=== PATIENT | male | born 1990 | race Caucasian/White ===

== ENCOUNTER 2017-01-21 10:18 | Emergency (ER) | payer OTHER ==
[~2017-01-21] VITALS: Ht 185.4 cm; Wt 122.7 kg
[~2017-01-21 10:18] MED LIST: ACET65TA OR; CLIN300C OR; DOXY100T OR; KEFL500C OR; NAPR500T OR; [UNRECOGNIZED DRUG - OTHER] PO
[2017-01-21] MEDS ORDERED: NS 1,000 ML IV SCH (10:33)
[2017-01-21] MEDS ORDERED: ONDANSETRON 4MG/2ML VIAL (J2405) IV ONE (10:45)
[2017-01-21] MEDS ORDERED: KETOROLAC 30 MG/ML VIAL (J1885) IV ONE (10:45)
[2017-01-21 11:00] LABS: INR 1.03
[2017-01-21 11:09] LABS: BASO % 0.2 % (0.0-1.0); EOS # 0.1 K/mm3 (0.0-0.50); EOS % 0.9 % (0.0-3.0); LARGE UNSTAINED CELL # 0.4 K/mm3 (0.0-0.4); LARGE UNSTAINED CELL % 2.6 % (0.0-4.0); LYMPH # 1.9 K/mm3 (1.5-6.5); LYMPH % 10.8 % (24.0-44.0); MEAN CORPUSCULAR HEMOGLOBIN 33.9 pg (27.0-33.0); MEAN CORPUSCULAR HGB CONC 34.5 g/dl (32.0-36.5); MEAN CORPUSCULAR VOLUME 98.1 fl (80.0-96.0); MONO # 1.1 K/mm3 (0.0-0.8); MONO % 7.6 % (0.0-5.0); NEUTROPHILS # 10.8 K/mm3 (1.8-7.7); NEUTROPHILS % 77.9 % (36.0-66.0); PLATELET COUNT, AUTOMATED 219 k/mm3 (150-450); RED CELL DISTRIBUTION WIDTH 12.9 % (11.5-14.5); WHITE BLOOD COUNT 13.8 K/mm3 (4.0-10.0)
[2017-01-21 11:19] LABS: ALBUMIN 4.5 GM/DL (3.2-5.2); ALBUMIN/GLOBULIN RATIO 1.36 (1.00-1.93); ALKALINE PHOSPHATASE 95 U/L (45-117); ALT/SGPT 41 U/L (12-78); ANION GAP 7 MEQ/L (8-16); AST/SGOT 24 U/L (15-37); BILIRUBIN,DIRECT 0.2 MG/DL (0.0-0.2); BLOOD UREA NITROGEN 9 MG/DL (7-18); CALCIUM LEVEL 9.2 MG/DL (8.5-10.1); CARBON DIOXIDE LEVEL 24 MEQ/L (21-32); CHLORIDE LEVEL 109 MEQ/L (98-107); CREATININE FOR GFR 0.95 MG/DL (0.70-1.30); GLOMERULAR FILTRATION RATE > 60.0 (>60); GLUCOSE, FASTING 103 MG/DL (70-105); POTASSIUM SERUM 3.8 MEQ/L (3.5-5.1); SODIUM LEVEL 140 MEQ/L (136-145); TOTAL PROTEIN 7.8 GM/DL (6.4-8.2)
[2017-01-21] MEDS ORDERED: MORPHINE 4 MG/ML 1ML SYRINGE IV ONE (11:30)
--- NOTE | 2017-01-21 11:59 | REP ---
Clinical: Right flank pain. Findings: Lung bases are clear. Visualized heart and pericardium normal. Liver, spleen, pancreas, bilateral adrenal glands and kidneys are normal. Layering sludge and subtle stones in the gallbladder cannot be excluded without CT evidence for acute cholecystitis. The kidneys are without perinephric stranding, hydroureteronephrosis, intrarenal or obstructing ureteral calculi. The enteric system is without obstruction or acute inflammatory process and a normal terminal ileum and appendix are identified in the right lower quadrant. Pelvis demonstrates collapsed normal bladder and age appropriate prostate/seminal vesicles. No free air. No free fluid. No adenopathy. Abdominal aorta without aneurysm. Musculoskeletal structures are intact. Impression: No acute abdominopelvic pathology appreciated. Possible cholelithiasis. Normal appearance to the urinary tract system. Signed by Bernard Lacy MD 01/21/2017 11:51 A
[2017-01-21] MEDS ORDERED: ZOFR4TAB3 PO (12:20)
[2017-01-21] MEDS ORDERED: NORCOTAB PO (12:20)
[2017-01-21 12:28] VITALS: BP 146/74
== END 2017-01-21 12:30 | disposition home or self-care (01) ==
LOC: M ED 10:18
DX: N20.1 Calculus of ureter (principal); E86.0 Dehydration

== ENCOUNTER 2019-02-09 08:18 | Emergency (ER) | payer OTHER ==
[~2019-02-09] VITALS: Ht 185.4 cm; Wt 115.9 kg
[~2019-02-09 08:18] MED LIST changes: +HYDR-3715 PO; +ZOFR4TAB14 PO
[2019-02-09] MEDS ORDERED: ACETAMINOPHEN 500 MG TAB PO ONE (09:45)
[2019-02-09] MEDS ORDERED: KETOROLAC 60 MG/2 ML VIAL (J1885) IM ONE (09:45)
--- NOTE | 2019-02-09 10:13 | REP ---
RIGHT WRIST, FOUR VIEW: There is no evidence of an acute fracture, dislocation or intrinsic bone disease. IMPRESSION: No fracture or dislocation. Electronically Signed by Zachary Mugruia MD 02/09/2019 05:06 P
[2019-02-09] MEDS ORDERED: IBUP80TA PO (11:11)
[2019-02-09] MEDS ORDERED: GABA-845 PO (11:11)
[2019-02-09 11:12] VITALS: BP 123/79
== END 2019-02-09 11:18 | disposition home or self-care (01) ==
LOC: M ED 08:18
DX: M65.88 Other synovitis and tenosynovitis, other site (principal); Z98.890 Other specified postprocedural states; M54.9 Dorsalgia, unspecified; G43.909 Migraine, unspecified, not intractable, without status migrainosus; K58.9 Irritable bowel syndrome, unspecified; R91.1 Solitary pulmonary nodule; F17.210 Nicotine dependence, cigarettes, uncomplicated; Z88.2 Allergy status to sulfonamides
CPT/HCPCS: 73110; 96372; 99283; J1885

== ENCOUNTER 2020-03-05 13:00 | Emergency (ER) | payer OTHER ==
[~2020-03-05 13:00] MED LIST changes: +GABA-845 PO; +IBUP80TA PO
[2020-03-05] MEDS ORDERED: FAMOTIDINE/NS 20 MG/50 ML BAG (S0028) ONE (13:08)
[2020-03-05] MEDS ORDERED: methylPREDNISolone 125MG 2ML VIAL ONE (13:08)
== END 2020-03-05 14:30 | disposition home or self-care (01) ==
LOC: M ED 13:00
DX: T63.441A Toxic effect of venom of bees, accidental (unintentional), initial encounter (principal); Y92.9 Unspecified place or not applicable; Y93.9 Activity, unspecified; Y99.9 Unspecified external cause status; F17.200 Nicotine dependence, unspecified, uncomplicated; Z88.2 Allergy status to sulfonamides
CPT/HCPCS: 96361; 96374; 96375; 99284; J2930

== ENCOUNTER 2020-08-02 09:50 | Emergency (ER) | payer OTHER ==
[~2020-08-02] VITALS: Ht 182.9 cm; Wt 115.7 kg
--- OUTSIDE RECORDS SUMMARY | 2020-08-02 09:56 | CCD ---
Author Author [facility] Organization [facility] Address Unknown Phone Unavailable Care Team Providers Care Threshing Operator Name Role Phone Toribio Ballard MD Unavailable Unavailable Toribio Ballard MD Unavailable Unavailable Toribio Ballard MD Unavailable Unavailable Toribio Ballard MD Unavailable Unavailable Toribio Ballard MD Unavailable Unavailable Toribio Ballard MD Unavailable Unavailable Toribio Ballard MD Unavailable Unavailable Toribio Ballard MD Unavailable Unavailable Toribio Ballard MD Unavailable Unavailable Toribio Ballard MD Unavailable Unavailable Toribio Ballard MD Unavailable Unavailable Toribio Ballard MD Unavailable Unavailable Toribio Ballard MD Unavailable Unavailable Toribio Ballard MD Unavailable Unavailable Toribio Ballard MD Unavailable Unavailable Toribio Ballard MD Unavailable Unavailable Toribio Ballard MD Unavailable Unavailable Toribio Ballard MD Unavailable Unavailable Toribio Ballard MD Unavailable Unavailable Toribio Ballard MD Unavailable Unavailable Toribio Ballard MD Unavailable Unavailable Toribio Ballard MD Unavailable Unavailable Toribio Ballard MD Unavailable Unavailable Toribio Ballard MD Unavailable Unavailable Toribio Ballard MD Unavailable Unavailable Toribio Ballard MD Unavailable Unavailable Toribio Ballard MD Unavailable Unavailable Toribio Ballard MD Unavailable Unavailable Toribio Ballard MD Unavailable Unavailable Toribio Ballard MD Unavailable Unavailable Toribio Ballard MD Unavailable Unavailable Toribio Ballard MD Unavailable Unavailable Toribio Ballard MD Unavailable Unavailable Toribio Ballard MD Unavailable Unavailable Toribio Balladr MD Unavailable Unavailable Toribio Ballard MD Unavailable Unavailable Toribio Ballard MD Unavailable Unavailable Toribio Ballard MD Unavailable Unavailable Toribio Ballard MD Unavailable Unavailable Toribio Ballard MD Unavailable Unavailable Toribio Ballard MD Unavailable Unavailable Toribio Ballard MD Unavailable Unavailable Toribio Ballard MD Unavailable Unavailable Toribio Ballard MD Unavailable Unavailable Toribio Ballard MD Unavailable Unavailable Toribio Ballard MD Unavailable Unavailable Toribio Ballard MD Unavailable Unavailable Toribio Ballard MD Unavailable Unavailable Toribio Ballard MD Unavailable Unavailable Toribio Ballard MD Unavailable Unavailable Toribio Ballard MD Unavailable Unavailable Toribio Ballard MD Unavailable Unavailable Toribio Ballard MD Unavailable Unavailable Toribio Ballard MD Unavailable Unavailable Toribio Ballard MD Unavailable Unavailable Toribio Ballard MD Unavailable Unavailable Toribio Ballard MD Unavailable Unavailable Toribio Ballard MD Unavailable Unavailable Toribio Ballard MD Unavailable Unavailable Toribio Ballard MD Unavailable Unavailable Toribio Ballard MD Unavailable Unavailable Toribio Ballard MD Unavailable Unavailable Toribio Ballard MD Unavailable Unavailable Toribio Ballard MD Unavailable Unavailable Toribio Ballard MD Unavailable Unavailable Toribio Ballard MD Unavailable Unavailable Toribio Ballard MD Unavailable Unavailable Toribio Ballard MD Unavailable Unavailable Toribio Ballard MD Unavailable Unavailable Toribio Ballard MD Unavailable Unavailable Toriibo Ballard MD Unavailable Unavailable Toribio Ballard MD Unavailable Unavailable Toribio Ballard MD Unavailable Unavailable Toribio Ballard MD Unavailable Unavailable Toribio Ballard MD Unavailable Unavailable Toribio Ballard MD Unavailable Unavailable Toribio Ballard MD Unavailable Unavailable Toribio Ballard MD Unavailable Unavailable Toribio Ballrad MD Unavailable Unavailable Toribio Ballard MD Unavailable Unavailable Toribio Ballard MD Unavailable Unavailable Toribio Ballard MD Unavailable Unavailable Toribio Ballard MD Unavailable Unavailable Toribio Ballard MD Unavailable Unavailable Toribio Ballard MD Unavailable Unavailable Toribio Ballard MD Unavailable Unavailable Toribio Ballard MD Unavailable Unavailable Toribio Ballard MD Unavailable Unavailable Toribio Ballard MD Unavailable Unavailable Re-disclosure Warning The records that you are about to access may contain information from federally-assisted alcohol or drug abuse programs. If such information is present, then the following federally mandated warning applies: This information has been disclosed to you from records protected by federal confidentiality rules (42 CFR part 2). The federal rules prohibit you from making any further disclosure of this information unless further disclosure is expressly permitted by the written consent of the person to whom it pertains or as otherwise permitted by 42 CFR part 2. A general authorization for the release of medical or other information is NOT sufficient for this purpose. The Federal rules restrict any use of the information to criminally investigate or prosecute any alcohol or drug abuse patient.The records that you are about to access may contain highly sensitive health information, the redisclosure of which is protected by Article 27-F of the [facility] Public Health law. If you continue you may have access to information: Regarding HIV / AIDS; Provided by facilities licensed or operated by the [facility] Office of Mental Health; or Provided by the [facility] Office for People With Developmental Disabilities. If such information is present, then the following [facility] mandated warning applies: This information has been disclosed to you from confidential records which are protected by state law. State law prohibits you from making any further disclosure of this information without the specific written consent of the person to whom it pertains, or as otherwise permitted by law. Any unauthorized further disclosure in violation of state law may result in a fine or prison sentence or both. A general authorization for the release of medical or other information is NOT sufficient authorization for further disc losure. Allergies and Adverse Reactions Type Description Substance Reaction Status Data Source(s ) Allergy to substance Allergy to substance Allergy to substance [facility] ([facility]) Family History Family Member Name Family Member Gender Family Member Status Date o f Status Description Data Source(s) Unknown Unknown Problem [facility] ([facility] Encounters Encounter Providers Location Date Indications Data Source(s ) Ilia Ballard MD: [address] [place] [phone], Ph. Attender: Ilia Ballard MD [facility] Medical 05/25/2020 12:00:00 AM EST [facility] Insurance Providers Payer name Policy type / Coverage type Policy ID Covered libertarian ID Covered libertarian's relationship to luna Policy Luna Plan Information PENDING SALE TO [facility] [id number] [facility] O [id number] S [id number] SELF PAY UNAVAILABLE SP UNAVAILA BLE SELF PAY O S [facility] Commercial Self [place] UNAVAILABLE S UNAVAILABLE [facility] PHYSIC[facility]ANS [facility] [id number] SP [id number] Workers Compensation Workers Compensation Self [place] P[place] 302/307 [id number] [place] [place] P[place] 302/307 [id number] [facility] [id number]
--- OUTSIDE RECORDS SUMMARY | 2020-08-02 09:56 | CCD ---
Author Organization Unknown Address [address] [place] [address] Phone [phone] Care Team Providers Care Associate Professor Of Literature Name Role Phone Albertina Krishna Unavailable Unavailable Allergies None recorded. Medications Name Status Start Date Stop Date famotidine 40 mg tablet TAKE ONE TABLET BY MOUTH EVERY DAY NEEDED FOR HIVES / ITCHING Active Not available prednisone 10 mg tablet TAKE 4 TABLETS BY MOUTH FOR 3 DAYS THEN 3 TABLETS FOR 3 DAYS THEN 2 TABLETS FOR 3 DAYS AND THEN 1 TABLET FOR 3 DAYS Active Not available Problems None recorded. Procedures None recorded. Results Lab Results None recorded. Past Encounters 05/25/2020 Exposure to SARS-CoV-2 Ilia Ballard MD: [address] [place] [phone], Ph. Social History None recorded. Vaccine List None recorded. Plan of Care Reminders Provider Appointments None recorded. Lab None recorded. Referral None recorded. Procedures None recorded. Surgeries None recorded. Imaging None recorded. Vitals None recorded.
[2020-08-02] MEDS ORDERED: ONDANSETRON 4 MG TAB PO ONE (10:45)
[2020-08-02] MEDS ORDERED: KETOROLAC 60MG 2ML VIAL IM ONE (10:45)
--- NOTE | 2020-08-02 10:54 | REP ---
INDICATION: fall COMPARISON: None. TECHNIQUE: AP, lateral, bilateral oblique views of the right elbow. FINDINGS: Evidence for prior fixation for proximal ulnar fracture. No obvious acute fracture or dislocation identified. IMPRESSION: No obvious acute fracture or dislocation. <Electronically signed by Bernard Lacy > 08/02/20 1052
--- NOTE | 2020-08-02 10:54 | REP ---
INDICATION: fall COMPARISON: None. TECHNIQUE: Two views of the right clavicle FINDINGS: Clavicle including sternoclavicular and acromioclavicular joints are intact. No acute fracture or dislocation appreciated. IMPRESSION: No acute fracture or dislocation. <Electronically signed by Bernard Lacy > 08/02/20 1050
--- OUTSIDE RECORDS SUMMARY | 2020-08-02 10:55 | CCD ---
Author Author [facility] Organization [facility] Address Unknown Phone Unavailable Care Team Providers Care Manager Business Process Name Role Phone Toribio Ballard MD Unavailable [...] is protected by Article 27-F of the [facility] Public Health law. If you continue you may have access to information: Regarding HIV / AIDS; Provided by facilities licensed or operated by the [facility] Office of Mental Health; or Provided by the [facility] Office for People With Developmental Disabilities. If such information is present, then the following [facility] mandated warning applies: This information has been [...] law may result in a fine or chcf sentence or both. A general authorization for the release of medical or other information is NOT sufficient authorization for further disc losure. Allergies and Adverse Reactions Type Description Substance Reaction Status Data Source(s ) Allergy to substance Allergy to substance Allergy to substance [facility] ([facility]) Family History Family Member Name Family Member Gender Family Member Status Date o f Status Description Data Source(s) Unknown Unknown Problem [facility] ([facility]) Encounters Encounter Providers Location Date Indications Data Source(s ) Ilia Ballard MD: [address] [place] [phone], Ph. Attender: Ilia Ballard MD [facility] Medical 05/25/2020 12:00:00 AM EST [facility] ([facility]) Insurance Providers Payer name Policy type / Coverage type Policy ID Covered green party ID Covered green party's relationship to luna Policy Luna Plan Information [facility] [id number] SP [id number] [facility] [place] O [id number] S [id number] SELF PAY UNAVAILABLE SP UNAVAILA BLE SELF PAY O S [facility] Commercial Self [place] P UNAVAILABLE S UNAVAILABLE CAPITAL [facility] PHYSICIANS HLTH [id number] SP [id number] Workers Compensation Workers Compensation Self [place] PPO 302/307 [id number] [place] PPO 302/307 [id number] [facility] [id number]
--- NOTE | 2020-08-02 10:56 | REP ---
INDICATION: fall COMPARISON: 02/09/2019 TECHNIQUE: AP, lateral, bilateral oblique views right wrist. FINDINGS: The carpal bones, surrounding osseous structures, soft tissues, and joint spaces are normal. There is no evidence for acute fracture or dislocation. No subcutaneous emphysema or radiodense foreign body. IMPRESSION: No obvious acute fracture or dislocation. <Electronically signed by Bernard Lacy > 08/02/20 1052
--- NOTE | 2020-08-02 10:57 | REP ---
INDICATION: fall COMPARISON: None. TECHNIQUE: AP, lateral, bilateral oblique views left foot. FINDINGS: The osseous structures and joint spaces are intact and normal. There is no evidence for acute fracture or dislocation. Surrounding soft tissues are unremarkable. No subcutaneous emphysema or radiodense foreign body. IMPRESSION: . No acute fracture or dislocation. <Electronically signed by Bernard Lacy > 08/02/20 1050
--- NOTE | 2020-08-02 10:58 | REP ---
INDICATION: fall COMPARISON: 05/17/2010 TECHNIQUE: AP, lateral, bilateral oblique views right hand. FINDINGS: The osseous structures and joint spaces are intact and normal. There is no evidence for acute fracture or dislocation. Surrounding soft tissues are unremarkable. No subcutaneous emphysema or radiodense foreign body. IMPRESSION: . No acute fracture or dislocation. <Electronically signed by Bernard Lacy > 08/02/20 1059
[2020-08-02 11:47] VITALS: BP 158/75
== END 2020-08-02 11:48 | disposition home or self-care (01) ==
LOC: M ED 09:50
DX: S40.011A Contusion of right shoulder, initial encounter (principal); S63.501A Unspecified sprain of right wrist, initial encounter; W01.0XXA Fall on same level from slipping, tripping and stumbling without subsequent striking against object, initial encounter; Y92.099 Unspecified place in other non-institutional residence as the place of occurrence of the external cause; Y93.H1 Activity, digging, shoveling and raking; Y99.9 Unspecified external cause status; R91.1 Solitary pulmonary nodule; Z87.01 Personal history of pneumonia (recurrent); Z86.69 Personal history of other diseases of the nervous system and sense organs; Z87.19 Personal history of other diseases of the digestive system; Z87.828 Personal history of other (healed) physical injury and trauma; F17.200 Nicotine dependence, unspecified, uncomplicated; Z88.2 Allergy status to sulfonamides; Z91.030 Bee allergy status
CPT/HCPCS: 73000; 73080; 73110; 73130; 73630; 96372; 99284; J1885

== ENCOUNTER 2020-12-24 15:16 | Emergency (ER) | payer OTHER ==
[~2020-12-24] VITALS: Ht 182.9 cm; Wt 119.1 kg
[~2020-12-24 15:16] MED LIST changes: +GABA-283 PO; -GABA-845 PO
[2020-12-24] MEDS ORDERED: IBUP200T45 PO (15:51)
--- NOTE | 2020-12-24 16:18 | REP ---
INDICATION: trauma COMPARISON: 11/10/2010 TECHNIQUE: Axial noncontrast images from the skull base to the thoracic inlet with coronal reformations. This CT examination was performed using the following dose reduction techniques: Automated exposure control, adjustment of mA and/or kv according to the patient's size, and use of iterative reconstruction technique. FINDINGS: Atrophy with periventricular leukomalacia and microvascular ischemic changes are appreciated. The ventricles and sulci are symmetric. Murguia-white differentiation is maintained. There is no evidence for acute intracranial hemorrhage, mass/mass effect, pathology or infarction. No extra-axial fluid collection. Calvarium is intact. Paranasal sinuses and mastoid air cells are within normal limits and maxillary retention cysts are identified. IMPRESSION: Atrophy and microvascular ischemic changes. No acute intracranial hemorrhage, infarction, or mass/mass effect. <Electronically signed by Bernard Lacy > 12/24/20 [id number]
--- NOTE | 2020-12-24 16:20 | REP ---
INDICATION: trauma COMPARISON: 11/10/2010 TECHNIQUE: Axial noncontrast images from the skull base to the thoracic inlet with coronal and sagittal re-formations This CT examination was performed using the following dose reduction techniques: Automated exposure control, adjustment of mA and/or kv according to the patient's size, and use of iterative reconstruction technique. FINDINGS: Normal alignment and lordosis is maintained. Cervical vertebral bodies including transverse processes and spinous processes are intact and there is no evidence for acute fracture / compression injury or subluxation. Spinal canal is patent. Posterior elements are intact. Paravertebral soft tissues are normal. IMPRESSION: Normal noncontrast cervical spine CT. No evidence for acute pathology or trauma/injury. <Electronically signed by Bernard Lacy > 12/24/20 [id number]
--- NOTE | 2020-12-24 16:38 | REP ---
INDICATION: trauama COMPARISON: None. TECHNIQUE: AP, lateral, bilateral oblique views right and left wrist. FINDINGS: The carpal bones, surrounding osseous structures, soft tissues, and joint spaces are normal. There is no evidence for acute fracture or dislocation. No subcutaneous emphysema or radiodense foreign body. IMPRESSION: Normal bilateral wrist series. No acute fracture or dislocation. <Electronically signed by Bernard Lacy > 12/24/20 0215
--- NOTE | 2020-12-24 16:39 | REP ---
INDICATION: trauama COMPARISON: None. TECHNIQUE: AP, lateral, bilateral oblique views right foot. FINDINGS: The osseous structures and joint spaces are intact and normal. There is no evidence for acute fracture or dislocation. Surrounding soft tissues are unremarkable. No subcutaneous emphysema or radiodense foreign body. IMPRESSION: . No acute fracture or dislocation. <Electronically signed by Bernard Lacy > 12/24/20 [id number]
--- NOTE | 2020-12-24 16:40 | REP ---
INDICATION: trauama COMPARISON: None. TECHNIQUE: Internal rotation, external rotation, and Y view. FINDINGS: No acute fracture or dislocation. The acromioclavicular and glenohumeral joints are intact. No periarticular calcifications or degenerative changes are appreciated. Sub acromial space is normal. Surrounding soft tissues are unremarkable. IMPRESSION: Normal right shoulder radiographs. <Electronically signed by Bernard Lacy > 12/24/20 [id number]
--- NOTE | 2020-12-24 16:43 | REP ---
INDICATION: trauama COMPARISON: None. TECHNIQUE: AP and lateral right tibia/fibula. FINDINGS: The osseous structures and joint spaces are intact and normal. There is no evidence for acute fracture or dislocation. Surrounding soft tissues are unremarkable. No subcutaneous emphysema or radiodense foreign body. IMPRESSION: . No acute fracture or dislocation. <Electronically signed by Bernard Lacy > 12/24/20 9414
[2020-12-24] MEDS ORDERED: NAPR-837 PO (17:19)
[2020-12-24] MEDS ORDERED: CYCL-707 PO (17:19)
[2020-12-24 17:45] VITALS: BP 131/68
== END 2020-12-24 17:46 | disposition home or self-care (01) ==
LOC: M ED 15:16
DX: S13.4XXA Sprain of ligaments of cervical spine, initial encounter (principal); S09.90XA Unspecified injury of head, initial encounter; S80.811A Abrasion, right lower leg, initial encounter; S66.911A Strain of unspecified muscle, fascia and tendon at wrist and hand level, right hand, initial encounter; S66.912A Strain of unspecified muscle, fascia and tendon at wrist and hand level, left hand, initial encounter; S90.31XA Contusion of right foot, initial encounter; S43.401A Unspecified sprain of right shoulder joint, initial encounter; W10.9XXA Fall (on) (from) unspecified stairs and steps, initial encounter; Y92.009 Unspecified place in unspecified non-institutional (private) residence as the place of occurrence of the external cause; Y93.89 Activity, other specified; Y99.8 Other external cause status; Z91.030 Bee allergy status; Z88.2 Allergy status to sulfonamides

== ENCOUNTER → 2020-12-25 | Outpatient (REF) | payer OTHER ==
[~2020-12-25] MED LIST changes: +CYCL-707 PO; +IBUP200T45 PO; +NAPR-837 PO
[2020-12-25 14:16] LABS: BASO # 0.1 10^3/uL (0.0-0.2); BASO % 0.8 % (0.0-1.0); EOS # 0.2 10^3/uL (0.0-0.5); EOS % 2.4 % (0.0-3.0); HEMATOCRIT 47.7 % (42.0-52.0); HEMOGLOBIN 15.7 g/dl (13.5-17.5); LYMPH # 1.7 10^3/uL (1.5-5.0); MEAN CORPUSCULAR HGB CONC 32.9 g/dl (32.0-36.5); MEAN CORPUSCULAR VOLUME 97.1 fl (80.0-96.0); MONO # 0.8 10^3/uL (0.0-0.8); MONO % 9.4 % (2.0-8.0); NEUTROPHILS % 67.5 % (36.0-66.0); PLATELET COUNT, AUTOMATED 236 10^3/uL (150-450); RED BLOOD COUNT 4.91 10^6/uL (4.30-6.10); WHITE BLOOD COUNT 8.9 10^3/uL (4.0-10.0)
[2020-12-25 14:28] LABS: ALBUMIN 4.3 GM/DL (3.2-5.2); ALT/SGPT 31 U/L (12-78); BILIRUBIN,TOTAL 0.5 MG/DL (0.2-1.0); BLOOD UREA NITROGEN 13 MG/DL (7-18); CALCIUM LEVEL 9.6 MG/DL (8.5-10.1); CARBON DIOXIDE LEVEL 27 MEQ/L (21-32); CHLORIDE LEVEL 109 MEQ/L (98-107); CREATININE FOR GFR 0.97 MG/DL (0.70-1.30); GLOMERULAR FILTRATION RATE > 60.0 (>60); GLUCOSE, FASTING 91 MG/DL (70-100); POTASSIUM SERUM 4.4 MEQ/L (3.5-5.1); SODIUM LEVEL 141 MEQ/L (136-145); TOTAL PROTEIN 7.6 GM/DL (6.4-8.2)
[2020-12-25 14:36] LABS: HEPATITIS B SURFACE ANTIBODY POSITIVE (POSITIVE)
[2020-12-25 14:47] LABS: HEPATITIS B SURFACE ANTIGEN NEGATIVE (NEGATIVE)
== END ==
LOC: M SFHCPLAZ 11:01
PROVIDERS: ATTEND Internal Medicine Infectious Disease
DX: B18.2 Chronic viral hepatitis C (principal)